=== PATIENT | male | born 1975 | race American Indian/Alaskan Native ===

== ENCOUNTER 2021-09-04 00:32 | Inpatient (IN) | payer SELFPAY ==
[2021-09-04] MEDS ORDERED: SODIUM CHLORIDE 0.9% 1000 ML IV SOLN IV ONE (08:10)
[2021-09-04] MEDS ORDERED: HYDROmorphone 1 MG/1 ML INJ IV STA (08:10)
[2021-09-04] MEDS ORDERED: PIPERACIL/TAZOBACTA 4.5/NS 100 4.5 GM/100 ML VIAL IV ONE (08:10)
[2021-09-04] MEDS ORDERED: ACETAMINOPHEN 500 MG TAB PO ONE (08:12)
[2021-09-04] MEDS ORDERED: TETANUS,DIPH,PERTUSS(ACELL) VACCINE 0.5 ML SYRINGE IM ONE (08:12)
--- NOTE | 2021-09-04 08:14 | Emergency Department Report ---
ED Lower Extremity HPI - General Chief Complaint: Extremity Injury, Lower Stated Complaint: FOOT PAIN Source: patient, RN notes reviewed Mode of arrival: Ambulatory Limitations: Physical Limitation - History of Present Illness Initial Comments: The patient is a 46-year-old gentleman who presents to the ER with a complaint of left foot pain, swelling, fevers and chills. He thinks that he fell and injured his foot a few days ago. He thinks he is not a diabetic but is not cert ain. He denies additional injuries and complaints. MD Complaint: leg injury, foot injury -: Gradual, days(s) Injury: Leg: Left, Foot: Left Type of Injury: blunt Severity: severe Improves With: rest Worsens With: movement, palpation - Related Data Allergies Allergy/AdvReac Type Severity Reaction Status Date / Time No Known Allergies Allergy Unverified 09/04/21 00:43 ED Review of Systems ROS: Stated complaint: FOOT PAIN Other details as noted in HPI Constitutional: fever, malaise, weakness Eyes: denies: eye discharge ENT: denies: epistaxis Respiratory: denies: cough Cardiovascular: denies: chest pain Gastrointestinal: denies: abdominal pain, nausea, vomiting, hematochezia Musculoskeletal: joint swelling, arthralgia, myalgia Skin: rash, lesions, change in color Neurological: weakness Psychiatric: anxiety ED Physical Exam - General Limitations: Physical Limitation General appearance: alert, anxious, in distress - Head Head exam: Present: atraumatic, normocephalic - Eye Eye exam: Present: normal appearance, EOMI. Absent: nystagmus - ENT ENT exam: Present: normal exam, normal orophraynx, mucous membranes moist, normal external ear exam - Neck Neck exam: Present: normal inspection, full ROM. Absent: tenderness, meningismus - Respiratory Respiratory exam: Present: normal lung sounds bilaterally. Absent: respiratory distress, wheezes, rales, rhonchi, stridor, decreased breath sounds - Cardiovascular Cardiovascular Exam: Present: normal rhythm, tachycardia, normal heart sounds. Absent: bradycardia, irregular rhythm, systolic murmur, diastolic murmur, rubs, gallop - GI/Abdominal GI/Abdominal exam: Present: soft. Absent: distended, tenderness, guarding, rebound, rigid, pulsatile mass - Rectal Rectal exam: Present: deferred - Extremities Exam Extremities exam: Present: full ROM, tenderness (There is left dorsal foot te nderness, redness and swelling. The muscular compartments are soft), other (2+ pulses noted in the bilateral upper and lower extremities. There is no long bony tenderness. The muscular compartments are soft. The pelvis is stable). Absent: normal inspection (There is diffuse left foot swelling, induration, erythema, and there is a dorsal foot abscess that is draining. There is cellulitis on the dorsal aspect of the foot, and circumferential cellulitis around the distal left lower extremity) - Back Exam Back exam: Present: normal inspection. Absent: tenderness, CVA tenderness (R), CVA tenderness (L), paraspinal tenderness, vertebral tenderness - Neurological Exam Neurological exam: Present: alert, oriented X3, other (No facial droop. Tongue midline. Extraocular movements intact bilaterally. Facial sensation intact to light touch in V1, V2, V3 distribution bilaterally. 5 and a 5 strength in 4 extremities. Sensation intact to light touch in 4 extremities.). Absent: motor sensory deficit - Psychiatric Psychiatric exam: Present: anxious - Skin Skin exam: Present: warm, erythema ED Course Vital Signs 09/04/21 09/04/21 09/04/21 00:44 00:46 09:37 Temperature 102.1 F H 102.1 F H Pulse Rate 114 H 83 Respiratory 20 Rate Blood Pressure 137/95 Blood Pressure 123/78 [Left] O2 Sat by Pulse 99 98 Oximetry 09/04/21 09:59 Temperature 100.6 F H Pulse Rate Respiratory Rate Blood Pressure Blood Pressure [Left] O2 Sat by Pulse Oximetry - Reevaluation(s) Reevaluation #1: 09/04/21 10:16 Differential diagnosis, including but not limited to: Cellulitis, abscess, sepsis Myositis,, rhabdomyolysis Assessment and plan: 46-year-old gentleman with obvious evidence of left lower extremity cellulitis, and abscess, muscular compartments are soft, appropriate pulses, ruling in for sepsis criteria, manifest by fever and tachycardia. Code sepsis is called overhead. Recommend admission to the medical service for fluids and antibiotics. Contacted general surgery on-call, Dr. Linnette Short, And hospital physician, Dr. Chelsea Gould Discussed the patient's history and physical and clinical impression. Hospital physician to admit patient to the medical service, general surgery to follow in consultation, request n.p.o. at this time x-rays reviewed and appreciated. Defer to inpatient team to follow these up. CK unremarkable, muscular compartments soft, myositis compartment syndrome are unlikely at this time. Discussed this plan of care with the patient. He is agreeable to the plan of care. Start fluids, antibiotics, pain medications. Feeling improved after initial ER therapy 09/04/21 10:16 ED Lower Extremity MDM - Lab Data Result diagrams: 09/04/21 08:30 09/04/21 08:30 Vital Signs 09/04/21 09/04/21 00:44 00:46 Temperature 102.1 F H 102.1 F H Pulse Rate 114 H Respiratory 20 Rate Blood Pressure 137/95 O2 Sat by Pulse 99 Oximetry Lab Results 09/04/21 09/04/21 09/04/21 Range/Units 08:30 08:30 08:30 WBC 11.4 H (4.5-11.0) K/mm3 RBC 4.04 (3.65-5.03) M/mm3 Hgb 11.3 L (11.8-15.2) gm/dl Hct 33.6 L (35.5-45.6) % MCV 83 L (84-94) fl MCH 28 (28-32) pg MCHC 34 (32-34) % RDW 14.6 (13.2-15.2) % Plt Count 330 (140-440) K/mm3 Lymph % (Auto) 10.7 L (13.4-35.0) % [place] % (Auto) 10.2 H (0.0-7.3) % Eos % (Auto) 0.2 (0.0-4.3) % Baso % (Auto) 0.4 (0.0-1.8) % Lymph # (Auto) 1.2 (1.2-5.4) K/mm3 [place] # (Auto) 1.2 H (0.0-0.8) K/mm3 Eos # (Auto) 0.0 (0.0-0.4) K/mm3 Baso # (Auto) 0.0 (0.0-0.1) K/mm3 Seg Neutrophils % 78.5 H (40.0-70.0) % Seg Neutrophils # 8.9 H (1.8-7.7) K/mm3 ESR 113 (0-20) mm/Hr PT 14.6 (12.2-14.9) Sec. INR 1.03 (0.87-1.13) APTT 29.2 (24.2-36.6) Sec. Sodium 134 L (137-145) mmol/L Potassium 4.1 (3.6-5.0) mmol/L Chloride 99.7 (98-107) mmol/L Carbon Dioxide 18 L (22-30) mmol/L Anion Gap 20 mmol/L BUN 17 (9-20) mg/dL Creatinine 1.2 (0.8-1.3) mg/dL Estimated GFR > 60 ml/min BUN/Creatinine Ratio 14 % Glucose 133 H (75-100) mg/dL Hemoglobin A1c (4-6) % Lactic Acid (0.7-2.0) mmol/L Calcium 8.3 L (8.4-10.2) mg/dL AST 24 (5-40) units/L ALT 18 (7-56) units/L Alkaline Phosphatase 151 H (35-129) units/L Total Creatine Kinase (55-170) units/L Total Protein 6.7 (6.3-8.2) g/dL Albumin 3.6 L (3.9-5) g/dL Albumin/Globulin Ratio 1.2 % Blood Type 09/04/21 09/04/21 09/04/21 Range/Units 08:30 08:30 08:30 WBC (4.5-11.0) K/mm3 RBC (3.65-5.03) M/mm3 Hgb (11.8-15.2) gm/dl Hct (35.5-45.6) % MCV (84-94) fl MCH (28-32) pg MCHC (32-34) % RDW (13.2-15.2) % Plt Count (140-440) K/mm3 Lymph % (Auto) (13.4-35.0) % [place] % (Auto) (0.0-7.3) % Eos % (Auto) (0.0-4.3) % Baso % (Auto) (0.0-1.8) % Lymph # (Auto) (1.2-5.4) K/mm3 [place] # (Auto) (0.0-0.8) K/mm3 Eos # (Auto) (0.0-0.4) K/mm3 Baso # (Auto) (0.0-0.1) K/mm3 Seg Neutrophils % (40.0-70.0) % Seg Neutrophils # (1.8-7.7) K/mm3 ESR (0-20) mm/Hr PT (12.2-14.9) Sec. INR (0.87-1.13) APTT (24.2-36.6) Sec. Sodium (137-145) mmol/L Potassium (3.6-5.0) mmol/L Chloride (98-107) mmol/L Carbon Dioxide (22-30) mmol/L Anion Gap mmol/L BUN (9-20) mg/dL Creatinine (0.8-1.3) mg/dL Estimated GFR ml/min BUN/Creatinine Ratio % Glucose (75-100) mg/dL Hemoglobin A1c 5.5 (4-6) % Lactic Acid 1.10 (0.7-2.0) mmol/L Calcium (8.4-10.2) mg/dL AST (5-40) units/L ALT (7-56) units/L Alkaline Phosphatase (35-129) units/L Total Creatine Kinase 61 (55-170) units/L Total Protein (6.3-8.2) g/dL Albumin (3.9-5) g/dL Albumin/Globulin Ratio % Blood Type 09/04/21 09/04/21 Range/Units 09:20 09:29 WBC (4.5-11.0) K/mm3 RBC (3.65-5.03) M/mm3 Hgb (11.8-15.2) gm/dl Hct (35.5-45.6) % MCV (84-94) fl MCH (28-32) pg MCHC (32-34) % RDW (13.2-15.2) % Plt Count (140-440) K/mm3 Lymph % (Auto) (13.4-35.0) % [place] % (Auto) (0.0-7.3) % Eos % (Auto) (0.0-4.3) % Baso % (Auto) (0.0-1.8) % Lymph # (Auto) (1.2-5.4) K/mm3 [place] # (Auto) (0.0-0.8) K/mm3 Eos # (Auto) (0.0-0.4) K/mm3 Baso # (Auto) (0.0-0.1) K/mm3 Seg Neutrophils % (40.0-70.0) % Seg Neutrophils # (1.8-7.7) K/mm3 ESR (0-20) mm/Hr PT (12.2-14.9) Sec. INR (0.87-1.13) APTT (24.2-36.6) Sec. Sodium (137-145) mmol/L Potassium (3.6-5.0) mmol/L Chloride (98-107) mmol/L Carbon Dioxide (22-30) mmol/L Anion Gap mmol/L BUN (9-20) mg/dL Creatinine (0.8-1.3) mg/dL Estimated GFR ml/min BUN/Creatinine Ratio % Glucose (75-100) mg/dL Hemoglobin A1c (4-6) % Lactic Acid 1.20 (0.7-2.0) mmol/L Calcium (8.4-10.2) mg/dL AST (5-40) units/L ALT (7-56) units/L Alkaline Phosphatase (35-129) units/L Total Creatine Kinase (55-170) units/L Total Protein (6.3-8.2) g/dL Albumin (3.9-5) g/dL Albumin/Globulin Ratio % Blood Type O POSITIVE - Radiology Data Radiology results: pending, report reviewed, image reviewed Left foot 3 views INDICATION: Foot pain FINDINGS: MTP joints and IP joints appear normal. Calcaneal spurring is seen. Diffuse soft tissue swelling is seen throughout the foot IMPRESSION: Diffuse soft tissue swelling throughout the foot. Calcaneal spurring. Signer Name: Kun Moreira MD Signed: 09/04/2021 8:20 AM Workstation Name: [id number] Left leg-4 views INDICATION: Left leg pain and swelling. COMPARISON: None available. IMPRESSION: There is a tiny L shaped metallic foreign body in the anterolateral aspect of the proximal calf. There is mild circumferential swelling about the essentially the entire catheter extending to the ankle but most prominently in the calf. Normal alignment. Mild tricompartmental DJD in the knee and in the medial ankle mortise. No acute fracture. Moderate enthesopathic change at the calcaneal tuberosity. Signer Name: Philip Iqbal MD Signed: 09/04/2021 8:27 AM Workstation Name: [email or web address] Critical Care Time: Yes Critical care time in (mins) excluding proc time.: 35 Critical care attestation.: If time is entered above; I have spent that time in minutes in the direct care of this critically ill patient, excluding procedure time. ED Disposition Clinical Impression: Sepsis, Foot abscess, left, Left leg cellulitis Disposition: ADMITTED INPATIENT Is pt being admited?: Yes Does the pt Need Aspirin: No Condition: Fair
[2021-09-04 08:43] LABS: Basophils % (Auto) 0.4 % (0.0-1.8); Eosinophils % (Auto) 0.2 % (0.0-4.3); Hematocrit 33.6 % (35.5-45.6); Hemoglobin 11.3 gm/dl (11.8-15.2); Lymphocytes # (Auto) 1.2 K/mm3 (1.2-5.4); Lymphocytes % (Auto) 10.7 % (13.4-35.0); Mean Corpuscular HGB Conc 34 % (32-34); Mean Corpuscular Volume 83 fl (84-94); Monocytes # (Auto) 1.2 K/mm3 (0.0-0.8); Monocytes % (Auto) 10.2 % (0.0-7.3); Platelet Count 330 K/mm3 (140-440); Red Blood Count 4.04 M/mm3 (3.65-5.03); Red Cell Distribution Width 14.6 % (13.2-15.2)
[2021-09-04 08:54] LABS: INR 1.03 (0.87-1.13)
[2021-09-04 08:57] LABS: Alanine Aminotransferase 18 units/L (7-56); Albumin 3.6 g/dL (3.9-5); BUN/Creatinine Ratio 14; Blood Urea Nitrogen 17 mg/dL (9-20); Calcium 8.3 mg/dL (8.4-10.2); Hemolysis Index 2
[2021-09-04] MEDS ORDERED: VANCOMYCIN 1,750 MG in SODIUM CHLORIDE 0.9% 500 ML 500 ML IV ONE (09:00)
[2021-09-04] MEDS ORDERED: DEXTROSE 50% IN WATER (25GM) 50 ML SYRINGE IV PRN (09:00)
[2021-09-04] MEDS ORDERED: NALOXONE 0.4 MG/1 ML INJ IV PRN (09:00)
[2021-09-04] MEDS ORDERED: VANCOMYCIN PHARMACY TO DOSE IV SCH (09:00)
--- NOTE | 2021-09-04 09:05 | History and Physical Report ---
History of Present Illness Date of examination: 09/04/21 Date of admission: 09/04/21 Chief complaint: Left lower extremity abscess History of present illness: Patient is a 46-year-old male currently homeless according to him unfortunately uses IV drugs and also marijuana presents to the ER today with complaint of left foot pain swelling fevers and chills in the ER was noted to have a temperature of 102.1. He was appropriately diagnosed for severe sepsis secondary to left lower extremity cellulitis. He believes that he fell and may have injured his foot a few days ago he also thinks that he was bitten by something. Here he denies injecting any substance to his leg his choice of drugs heroin which he says he has not had in a few months. He denies any nausea vomiting or diarrhea. He denies any history of diabetes. He does appear severely disheveled and unkept. Past History Past Medical History: other (Homeless, IV drug use) Past Surgical History: No surgical history Social history: smoking, IV drug use, full code. denies: alcohol abuse, prescription drug abuse Family history: no significant family history Medications and Allergies Allergies Allergy/AdvReac Type Severity Reaction Status Date / Time No Known Allergies Allergy Unverified 09/04/21 00:43 Active Meds: Active Medications Acetaminophen (Acetaminophen 325 Mg Tab) 650 mg PO Q4H PRN PRN Reason: Pain MILD(1-3)/Fever >100.5/WELLS Albuterol (Albuterol 2.5 Mg/3 Ml Nebu) 2.5 mg IH Q4HRT PRN PRN Reason: Shortness Of Breath Dextrose (Dextrose 50% In Water (25gm) 50 Ml Syringe) 50 ml IV Q30MIN PRN; Protocol PRN Reason: Hypoglycemia Docusate Sodium (Docusate Sodium 100 Mg Cap) 100 mg PO BID LIANNA Famotidine (Famotidine 20 Mg/2 Ml Inj) 20 mg IV BID LIANNA Heparin Sodium (Porcine) (Heparin 5,000 Unit/1 Ml Vial) 5,000 unit SUB-Q Q8HR LIANNA Hydromorphone HCl (Hydromorphone 1 Mg/1 Ml Inj) 0.25 mg IV Q4H PRN PRN Reason: Pain, Moderate (4-6) Vancomycin HCl 1,750 mg/ (Sodium Chloride) 535 mls @ 333 mls/hr IV ONCE ONE; Protocol Stop: 09/04/21 10:36 Sodium Chloride (Nacl 0.9% 1000 Ml) 1,000 mls @ 125 mls/hr IV DIRECT LIANNA Naloxone HCl (Naloxone 0.4 Mg/1 Ml Inj) 0.1 mg IV Q2MIN PRN PRN Reason: Res Rate </= 8 or 02 SAT < 92% Ondansetron HCl (Ondansetron 4 Mg/2 Ml Inj) 4 mg IV Q6H PRN PRN Reason: Nausea And Vomiting Sodium Chloride (Sodium Chloride 0.9% 10 Ml Flush Syringe) 10 ml IV BID LIANNA Sodium Chloride (Sodium Chloride 0.9% 10 Ml Flush Syringe) 10 ml IV PRN PRN PRN Reason: LINE FLUSH Review of Systems All systems: negative Constitutional: fever, chills, no weight loss, no weight gain, no sweats, no night sweats, no fatigue, no weakness, no malaise, no lethargy Cardiovascular: no chest pain, no orthopnea, no palpitations, no rapid/irregular heart beat, no edema, no syncope, no lightheadedness, no shortness of breath Respiratory: no cough, no cough with sputum, no excessive sputum, no hemoptysis, no shortness of breath, no dyspnea on exertion Gastrointestinal: no vomiting, no diarrhea, no constipation, no change in bowel habits Genitourinary Male: no dysuria, no discharge, no urinary hesitancy, no incontinence Musculoskeletal: other (Left foot swelling redness) Integumentary: redness, wounds Exam - Physical Exam Narrative exam: VITAL SIGNS: Reviewed. GENERAL: The patient appears normally developed otherwise disheveled and unkept, Vital signs as documented. HEAD: No signs of head trauma. EYES: Pupils are equal. Extraocular motions intact. EARS: Hearing grossly intact. MOUTH: Oropharynx is normal. NECK: No adenopathy, no JVD. CHEST: Chest with clear breath sounds bilaterally. No wheezes, rales, or rhonchi. CARDIAC: Regular rate and rhythm. S1 and S2, without murmurs, gallops, or rubs. VASCULAR: No Edema. Peripheral pulses normal and equal in all extremities. ABDOMEN: Soft, non tender and non distended. No rebound or guarding, and no masses palpated. Bowel Sounds normal. MUSCULOSKELETAL: Good range of motion of all major joints. Except right foot with significant edema redness punctate lesion and induration. Warmth extending all the way to ankle. Otherwise no cyanosis. Has a track yash of the left upper extremity NEUROLOGIC EXAM: Alert and oriented x 3 No focal sensory or strength deficits. Speech normal. Follows commands. PSYCHIATRIC: Mood normal. SKIN: detail exam as documented in skin assessment - Constitutional Vitals: Temp Pulse Resp BP Pulse Ox 102.1 F H 114 H 20 137/95 99 09/04/21 00:46 09/04/21 00:46 09/04/21 00:46 09/04/21 00:46 09/04/21 00:46 Results - Labs CBC & Chem 7: 09/04/21 08:30 09/04/21 08:30 Labs: Laboratory Last Values WBC 11.4 K/mm3 (4.5-11.0) H 09/04/21 08:30 RBC 4.04 M/mm3 (3.65-5.03) 09/04/21 08:30 Hgb 11.3 gm/dl (11.8-15.2) L 09/04/21 08:30 Hct 33.6 % (35.5-45.6) L 09/04/21 08:30 MCV 83 fl (84-94) L 09/04/21 08:30 MCH 28 pg (28-32) 09/04/21 08:30 MCHC 34 % (32-34) 09/04/21 08:30 RDW 14.6 % (13.2-15.2) 09/04/21 08:30 Plt Count 330 K/mm3 (140-440) 09/04/21 08:30 Lymph % (Auto) 10.7 % (13.4-35.0) L 09/04/21 08:30 [place] % (Auto) 10.2 % (0.0-7.3) H 09/04/21 08:30 Eos % (Auto) 0.2 % (0.0-4.3) 09/04/21 08:30 Baso % (Auto) 0.4 % (0.0-1.8) 09/04/21 08:30 Lymph # (Auto) 1.2 K/mm3 (1.2-5.4) 09/04/21 08:30 [place] # (Auto) 1.2 K/mm3 (0.0-0.8) H 09/04/21 08:30 Eos # (Auto) 0.0 K/mm3 (0.0-0.4) 09/04/21 08:30 Baso # (Auto) 0.0 K/mm3 (0.0-0.1) 09/04/21 08:30 Seg Neutrophils % 78.5 % (40.0-70.0) H 09/04/21 08:30 Seg Neutrophils # 8.9 K/mm3 (1.8-7.7) H 09/04/21 08:30 PT 14.6 Sec. (12.2-14.9) 09/04/21 08:30 INR 1.03 (0.87-1.13) 09/04/21 08:30 Sodium 134 mmol/L (137-145) L 09/04/21 08:30 Potassium 4.1 mmol/L (3.6-5.0) 09/04/21 08:30 Chloride 99.7 mmol/L (98-107) 09/04/21 08:30 Carbon Dioxide 18 mmol/L (22-30) L 09/04/21 08:30 Anion Gap 20 mmol/L 09/04/21 08:30 BUN 17 mg/dL (9-20) 09/04/21 08:30 Creatinine 1.2 mg/dL (0.8-1.3) 09/04/21 08:30 Estimated GFR > 60 ml/min 09/04/21 08:30 BUN/Creatinine Ratio 14 % 09/04/21 08:30 Glucose 133 mg/dL (75-100) H 09/04/21 08:30 Lactic Acid 1.10 mmol/L (0.7-2.0) 09/04/21 08:30 Calcium 8.3 mg/dL (8.4-10.2) L 09/04/21 08:30 AST 24 units/L (5-40) 09/04/21 08:30 ALT 18 units/L (7-56) 09/04/21 08:30 Alkaline Phosphatase 151 units/L (35-129) H 09/04/21 08:30 Total Creatine Kinase 61 units/L (55-170) 09/04/21 08:30 Total Protein 6.7 g/dL (6.3-8.2) 09/04/21 08:30 Albumin 3.6 g/dL (3.9-5) L 09/04/21 08:30 Albumin/Globulin Ratio 1.2 % 09/04/21 08:30 Assessment and Plan Assessment and plan: Patient is a 46-year-old male currently homeless according to him unfortunately uses IV drugs and also marijuana presents to the ER today with complaint of left foot pain swelling fevers and chills in the ER was noted to have a temperature of 102.1. He was appropriately diagnosed for severe sepsis secondary to left lower extremity cellulitis. He believes that he fell and may have injured his foot a few days ago he also thinks that he was bitten by something. Here he denies injecting any substance to his leg his choice of drugs heroin which he s ays he has not had in a few months. He denies any nausea vomiting or diarrhea. He denies any history of diabetes. He does appear severely disheveled and unkept. Left foot 3 views IMPRESSION: Diffuse soft tissue swelling throughout the foot. Calcaneal spurring. S Left leg-4 views IIMPRESSION: There is a tiny L shaped metallic foreign body in the anterolateral aspect of the proximal calf. There is mild circumferential swelling about the essentially the entire catheter extending to the ankle but most prominently in the calf. Normal alignment. Mild tricompartmental DJD in the knee and in the medial ankle mortise. No acute fracture. Moderate enthesopathic change at the calcaneal tuberosity. Severe sepsis, Foot abscess, left, Left leg cellulitis Possible retained foreign body on the left foot IV drug abuse Tobacco use disorder Homeless Metabolic acidosis PLAN Admit to Med[facility] unit Sepsis protocol, fluids, cultures, abx ID and Surgical consult Counselling on lifestyle chocies, substance abuse and tobacco use disorder 25mins Counseling on footwear is on ambulation Social work consult Monitor for withdrawal symptoms DVT and GI prophylax Advance Directives: Yes Plan of care discussed with patient/family: Yes
[2021-09-04 09:11] LABS: Erythrocyte Sedimentation Rate 113 mm/Hr (0-20)
[2021-09-04 09:20] LABS: Partial Thromboplastin Time 29.2 Sec. (24.2-36.6)
--- NOTE | 2021-09-04 09:25 | XRay Report ---
Left foot 3 views INDICATION: Foot pain FINDINGS: MTP joints and IP joints appear normal. Calcaneal spurring is seen. Diffuse soft tissue swe lling is seen throughout the foot IMPRESSION: Diffuse soft tissue swelling throughout the foot. Calcaneal spurring. Signer Name: Kun Moreira MD Signed: 09/04/2021 9:20 AM Workstation Name: [id number]
--- NOTE | 2021-09-04 09:31 | XRay Report ---
Left leg-4 views INDICATION: Left leg pain and swelling. COMPARISON: None available. IMPRESSION: There is a tiny L shaped metallic foreign body in the anterolateral aspect of the proxim al calf. There is mild circumferential swelling about the essentially the entire catheter extending t o the ankle but most prominently in the calf. Normal alignment. Mild tricompartmental DJD in the kne e and in the medial ankle mortise. No acute fracture. Moderate enthesopathic change at the calcaneal tuberosity. Signer Name: Philip Iqbal MD Signed: 09/04/2021 9:27 AM Workstation Name: [id number]
[2021-09-04] MEDS ORDERED: ONDANSETRON 4 MG/2 ML INJ IV PRN (10:00)
[2021-09-04] MEDS: DOCUSATE SODIUM 100 MG CAP PO SCH ×2 (11:57→22:58)
[2021-09-04] MEDS: FAMOTIDINE 20 MG/2 ML INJ IV SCH ×2 (11:57→22:57)
[2021-09-04] MEDS ORDERED: ALBUTEROL 2.5 MG/3 ML NEBU IH PRN (12:00)
--- NOTE | 2021-09-04 13:20 | Consultation ---
History of Present Illness Consult date: 09/04/21 Reason for consult: other (Left foot pain) Chief complaint: Left foot pain and swelling - History of present illness History of present illness: 46-year-old male with no past medical history who presented to the emergency room with a few days of worsening redness, swelling, pain in his left foot. The patient states that he tripped over something and bumped his left foot. He thought he may have broken his foot or ankle. 1 to 2 days after this incident he noticed swelling and redness of his leg. He has never had anything like this for. He states he noted drainage from the area but cannot characterize the fluid. States that the top of the foot is painful. T-max of 102 in the emergency room. Work-up in the emergency room revealed that the patient had erythema and possible underlying abscess of the right foot. He is admitted to the hospital service for treatment of sepsis and surgery is consulted for evaluation. Past History Past Medical History: other (Homeless, IV drug use) Past Surgical History: No surgical history Social history: smoking, IV drug use, full code. denies: alcohol abuse, pre scription drug abuse Family history: no significant family history Medications and Allergies Allergies Allergy/AdvReac Type Severity Reaction Status Date / Time No Known Allergies Allergy Unverified 09/04/21 00:43 Active Meds: Active Medications Acetaminophen (Acetaminophen 325 Mg Tab) 650 mg PO Q4H PRN PRN Reason: Pain MILD(1-3)/Fever >100.5/WELLS Albuterol (Albuterol 2.5 Mg/3 Ml Nebu) 2.5 mg IH Q4HRT PRN PRN Reason: Shortness Of Breath Dextrose (Dextrose 50% In Water (25gm) 50 Ml Syringe) 50 ml IV Q30MIN PRN; Protocol PRN Reason: Hypoglycemia Docusate Sodium (Docusate Sodium 100 Mg Cap) 100 mg PO BID [facility] Last Admin: 09/04/21 11:57 Dose: Not Given Famotidine (Famotidine 20 Mg/2 Ml Inj) 20 mg IV BID [facility] Last Admin: 09/04/21 11:57 Dose: Not Given Heparin Sodium (Porcine) (Heparin 5,000 Unit/1 Ml Vial) 5,000 unit SUB-Q Q8HR [facility] Hydromorphone HCl (Hydromorphone 1 Mg/1 Ml Inj) 0.25 mg IV Q4H PRN PRN Reason: Pain, Moderate (4-6) Sodium Chloride (Nacl 0.9% 1000 Ml) 1,000 mls @ 125 mls/hr IV DIRECT [facility] Vancomycin HCl 1,250 mg/ (Sodium Chloride) 275 mls @ 166.667 mls/hr IV Q12HR [facility] Naloxone HCl (Naloxone 0.4 Mg/1 Ml Inj) 0.1 mg IV Q2MIN PRN PRN Reason: Res Rate </= 8 or 02 SAT < 92% Ondansetron HCl (Ondansetron 4 Mg/2 Ml Inj) 4 mg IV Q6H PRN PRN Reason: Nausea And Vomiting Sodium Chloride (Sodium Chloride 0.9% 10 Ml Flush Syringe) 10 ml IV BID [facility] Last Admin: 09/04/21 11:58 Dose: 10 ml Sodium Chloride (Sodium Chloride 0.9% 10 Ml Flush Syringe) 10 ml IV PRN PRN PRN Reason: LINE FLUSH Review of Systems All systems: negative (10 point ROS performed and negative except that listed in HPI) Exam Vital Signs Temp 102.1 F H 09/04/21 00:44 Narrative exam: Gen.: Awake, alert, oriented x3. No apparent distress ENT: Trachea midline. No lymphadenopathy. No scleral icterus or conjunctival pallor CV: S1, S2 present Respiratory: No audible wheezes Abdomen: Soft, nondistended, nontender. No rebound, rigidity, guarding Extremities: 3+ edema of left foot extending to the lower calf. There is erythema of the dorsal aspect of the foot extending towards the ankle with. The foot is warm. Calf is soft. Moderate tenderness to palpation of the foot. Superficial and wound. Dorsal aspect of the foot without drainage. Left foot examined with bedside ultrasound. Severe edema seen of the skin and subcutaneous tissue without definitive collection. Visible dorsalis pedis with pulsation. Results - Labs 09/04/21 08:30 09/04/21 08:30 Abnormal lab results 09/04/21 09/04/21 09/04/21 Range/Units 08:30 08:30 08:30 WBC 11.4 H (4.5-11.0) K/mm3 Hgb 11.3 L (11.8-15.2) gm/dl Hct 33.6 L (35.5-45.6) % MCV 83 L (84-94) fl Lymph % (Auto) 10.7 L (13.4-35.0) % [place] % (Auto) 10.2 H (0.0-7.3) % [place] # (Auto) 1.2 H (0.0-0.8) K/mm3 Seg Neutrophils % 78.5 H (40.0-70.0) % Seg Neutrophils # 8.9 H (1.8-7.7) K/mm3 Sodium 134 L (137-145) mmol/L Carbon Dioxide 18 L (22-30) mmol/L Glucose 133 H (75-100) mg/dL Calcium 8.3 L (8.4-10.2) mg/dL Alkaline Phosphatase 151 H (35-129) units/L C-Reactive Protein 14.90 H (0.00-1.30) mg/dL Albumin 3.6 L (3.9-5) g/dL Diabetes panel 09/04/21 09/04/21 Range/Units 08:30 08:30 Sodium 134 L (137-145) mmol/L Potassium 4.1 (3.6-5.0) mmol/L Chloride 99.7 (98-107) mmol/L Carbon Dioxide 18 L (22-30) mmol/L BUN 17 (9-20) mg/dL Creatinine 1.2 (0.8-1.3) mg/dL Glucose 133 H (75-100) mg/dL Hemoglobin A1c 5.5 (4-6) % Calcium 8.3 L (8.4-10.2) mg/dL AST 24 (5-40) units/L ALT 18 (7-56) units/L Alkaline Phosphatase 151 H (35-129) units/L Total Protein 6.7 (6.3-8.2) g/dL Albumin 3.6 L (3.9-5) g/dL Calcium panel 09/04/21 Range/Units 08:30 Calcium 8.3 L (8.4-10.2) mg/dL Albumin 3.6 L (3.9-5) g/dL Pituitary panel 09/04/21 Range/Units 08:30 Sodium 134 L (137-145) mmol/L Potassium 4.1 (3.6-5.0) mmol/L Chloride 99.7 (98-107) mmol/L Carbon Dioxide 18 L (22-30) mmol/L BUN 17 (9-20) mg/dL Creatinine 1.2 (0.8-1.3) mg/dL Glucose 133 H (75-100) mg/dL Calcium 8.3 L (8.4-10.2) mg/dL Adrenal panel 09/04/21 Range/Units 08:30 Sodium 134 L (137-145) mmol/L Potassium 4.1 (3.6-5.0) mmol/L Chloride 99.7 (98-107) mmol/L Carbon Dioxide 18 L (22-30) mmol/L BUN 17 (9-20) mg/dL Creatinine 1.2 (0.8-1.3) mg/dL Glucose 133 H (75-100) mg/dL Calcium 8.3 L (8.4-10.2) mg/dL Total Bilirubin 0.50 (0.1-1.2) mg/dL AST 24 (5-40) units/L ALT 18 (7-56) units/L Alkaline Phosphatase 151 H (35-129) units/L Total Protein 6.7 (6.3-8.2) g/dL Albumin 3.6 L (3.9-5) g/dL - Imaging Additional studies: X-ray of left foot and ankle Assessment and Plan 46 yo M with 1. L foot cellulitis 2. sepsis Bedside ultrasound performed and no obvious drainable collection was seen. Plan: 1. Diet as [place] 2. IVF 3. IV abx 4. blcx pending 5. DVT ppx 6. prn pain control 7. Ct LLE to r/o abscess 8. May need I&D if abscess on imaging or no clinical improvement Thank you for this consultation. Please call with any questions or concerns. Evaluation and treatment of this patient was during the time of the national and state emergency arising from COVID19 coronavirus pandemic. Treatment and procedures performed meet the current and available best practice and guidelines for patient during the COVID pandemic.
[2021-09-04] MEDS: HYDROmorphone 1 MG/1 ML INJ IV PRN ×2 (14:39→21:23)
[2021-09-04] MEDS: HEPARIN 5,000 UNIT/1 ML VIAL SUB-Q SCH ×2 (14:39→22:57)
--- NOTE | 2021-09-04 14:46 | Cat Scan Report ---
CT LEFT LOWER EXTREMITY WITH CONTRAST INDICATION : L foot wound/cellulitis, r/o abscess OMNI 300 100 ML. TECHNIQUE: Axial imaging performed through the left lower leg from the knee through the foot followi ng 100 cc of Omnipaque 300 intravenously. Sagittal and coronal reformatted images. All CT scans at th is location are performed using CT dose reduction for ALARA by means of automated exposure control. COMPARISON: Left tibia and fibula x-ray performed the same day FINDINGS: There is moderate to severe diffuse subcutaneous edema throughout the distal left lower ext remity. There appears to be focal skin ulceration on the dorsum of the foot. No soft tissue gas is id entified. No peripherally enhancing fluid collection consistent with abscess is identified. Previousl y described tiny shaped metallic foreign body is noted in the lateral soft tissues just below the ski n surface in the mid harris area. There are no obvious inflammatory changes surrounding this metallic d ensity. There is an ill-defined low density lesion within the muscular structures between the proximal tibia and fibula measuring 2.4 x 1.7 x 3.7 cm cyst. Internal density measures 4 Hounsfield units. This does not appear to represent an abscess. I suspect this represents a ganglion cyst. The remaining muscula r structures are unremarkable. The vascular structures are widely patent. No bony abnormalities suggest osteomyelitis. IMPRESSION: Diffuse nonspecific soft tissue edema consistent with cellulitis. No abscess is appreciat ed. Probable ganglion cyst as described. Signer Name: Griffin Hopkins Jr, MD Signed: 09/04/2021 2:42 PM Workstation Name: [id number]
[2021-09-04 16:22] LABS: Bilirubin,Urine NEG (Negative); Blood,Urine SM (Negative); Color,Urine Yellow (Yellow); Mucus,Urine FEW /HPF
[2021-09-04 16:25] LABS: Benzodiazepines Screen,Urine Negative; Methadone Screen,Urine Negative; Opiate Screen,Urine Negative
[2021-09-04 16:38] LABS: Amphetamine Screen,Urine Positive; Cannabinoid Screen,Urine Positive; Cocaine Screen,Urine Positive
[2021-09-04] MEDS: VANCOMYCIN 1,250 MG in SODIUM CHLORIDE 0.9% 250ML 250 ML IV SCH (22:56)
[2021-09-04] MEDS: SODIUM CHLORIDE 0.9% 1000 ML 1,000 ML IV SCH (23:02)
[2021-09-05] MEDS: HYDROmorphone 1 MG/1 ML INJ IV PRN ×5 (02:35→23:09)
[2021-09-05] MEDS: HEPARIN 5,000 UNIT/1 ML VIAL SUB-Q SCH ×3 (06:14→22:04)
[2021-09-05] MEDS: SODIUM CHLORIDE 0.9% 1000 ML 1,000 ML IV SCH (06:17)
[2021-09-05 06:22] LABS: Basophils # (Auto) 0.1 K/mm3 (0.0-0.1); Basophils % (Auto) 0.3 % (0.0-1.8); Lymphocytes # (Auto) 1.2 K/mm3 (1.2-5.4); Lymphocytes % (Auto) 8.5 % (13.4-35.0); Mean Corpuscular HGB Conc 34 % (32-34); Mean Corpuscular Volume 82 fl (84-94); Monocytes # (Auto) 1.4 K/mm3 (0.0-0.8); Monocytes % (Auto) 9.7 % (0.0-7.3); Platelet Count 269 K/mm3 (140-440); Red Blood Count 3.54 M/mm3 (3.65-5.03); Red Cell Distribution Width 14.5 % (13.2-15.2)
[2021-09-05 07:21] LABS: BUN/Creatinine Ratio 11; Blood Urea Nitrogen 11 mg/dL (9-20); Calcium 8.4 mg/dL (8.4-10.2); Hemolysis Index 0; Prealbumin 0.063 g/L (0.200-0.400)
[2021-09-05] MEDS ORDERED: POTASSIUM CHLORIDE ER 20 MEQ TAB PO NR (09:00)
[2021-09-05] MEDS: ACETAMINOPHEN 325 MG TAB PO PRN (10:16)
[2021-09-05] MEDS: DOCUSATE SODIUM 100 MG CAP PO SCH ×2 (10:17→22:04)
[2021-09-05] MEDS: FAMOTIDINE 20 MG/2 ML INJ IV SCH ×2 (10:17→22:04)
[2021-09-05] MEDS: VANCOMYCIN 1,250 MG in SODIUM CHLORIDE 0.9% 250ML 250 ML IV SCH ×2 (10:47→22:04)
--- NOTE | 2021-09-05 12:01 | Consultation ---
History of Present Illness - Reason for Consult Consult date: 09/05/21 L foot cellulitis and abscess Requesting physician: ROLANDO STODDARD - History of Present Illness The patient is a 46-year-old male with IVDU was admitted with left foot pain and swelling consistent with cellulitis, there was also concern for abscess for which he was seen by general surgery. Symptoms began about 2 days ago after trauma due to fall. CT revealed diffuse nonspecific soft tissue edema, no focal abscess seen. ID consulted for additional evaluation. Fever of 102.1 F on a dmission. Urinary tox screen positive for amphetamine, marijuana, cocaine. Works in construction. Denies sharing of needles. Review of Systems: Per HPI Past History Past Medical History: other (Homeless, IV drug use) Past Surgical History: No surgical history Social history: smoking, IV drug use, full code. denies: alcohol abuse, prescription drug abuse Family history: no significant family history Medications and Allergies Allergies Allergy/AdvReac Type Severity Reaction Status Date / Time No Known Allergies Allergy Unverified 09/04/21 00:43 Active Meds: Active Medications Acetaminophen (Acetaminophen 325 Mg Tab) 650 mg PO Q4H PRN PRN Reason: Pain MILD(1-3)/Fever >100.5/WELLS Last Admin: 09/05/21 10:16 Dose: 650 mg Albuterol (Albuterol 2.5 Mg/3 Ml Nebu) 2.5 mg IH Q4HRT PRN PRN Reason: Shortness Of Breath Dextrose (Dextrose 50% In Water (25gm) 50 Ml Syringe) 50 ml IV Q30MIN PRN; Protocol PRN Reason: Hypoglycemia Docusate Sodium (Docusate Sodium 100 Mg Cap) 100 mg PO BID [facility] Last Admin: 09/05/21 10:17 Dose: 100 mg Famotidine (Famotidine 20 Mg/2 Ml Inj) 20 mg IV BID [facility] Last Admin: 09/05/21 10:17 Dose: 20 mg Heparin Sodium (Porcine) (Heparin 5,000 Unit/1 Ml Vial) 5,000 unit SUB-Q Q8HR [facility] Last Admin: 09/05/21 06:14 Dose: 5,000 unit Hydromorphone HCl (Hydromorphone 1 Mg/1 Ml Inj) 0.25 mg IV Q4H PRN PRN Reason: Pain, Moderate (4-6) Last Admin: 09/05/21 10:16 Dose: 0.25 mg Sodium Chloride (Nacl 0.9% 1000 Ml) 1,000 mls @ 125 mls/hr IV DIRECT [facility] Last Admin: 09/05/21 06:17 Dose: 125 mls/hr Vancomycin HCl 1,250 mg/ (Sodium Chloride) 275 mls @ 166.667 mls/hr IV Q12HR [facility] Last Admin: 09/05/21 10:47 Dose: 166.667 mls/hr Naloxone HCl (Naloxone 0.4 Mg/1 Ml Inj) 0.1 mg IV Q2MIN PRN PRN Reason: Res Rate </= 8 or 02 SAT < 92% Ondansetron HCl (Ondansetron 4 Mg/2 Ml Inj) 4 mg IV Q6H PRN PRN Reason: Nausea And Vomiting Potassium Chloride (Potassium Chloride Er 20 Meq Tab) 40 meq PO ONCE@0900 NR Stop: 09/05/21 14:00 Last Admin: 09/05/21 10:24 Dose: 40 meq Sodium Chloride (Sodium Chloride 0.9% 10 Ml Flush Syringe) 10 ml IV BID [facility] Last Admin: 09/05/21 10:19 Dose: 10 ml Sodium Chloride (Sodium Chloride 0.9% 10 Ml Flush Syringe) 10 ml IV PRN PRN PRN Reason: LINE FLUSH Physical Examination - Physical Exam Narrative exam: Physical Exam: Constitutional: Alert, cooperative. No acute distress Head, Ears, Nose: Normocephalic, atraumatic. External ears, nose normal Eyes: Conjunctivae/corneas clear. No icterus. No ptosis. Neck: Supple, no meningeal signs Cardiovascular: S1, S2 + Respiratory: Good air entry, clear to auscultation bilaterally GI: Soft, non-tender; bowel sounds normal. No peritoneal signs Musculoskeletal: L foot swelling, redness, tenderness, L dorsum with edema, superficial eschar + Skin: No rash or abscess. Tattoos + Hem/Lymphatic: No palpable cervical or supraclavicular nodes. No lymphangitis Psych: Mood ok. Affect normal Neurological: Awake, alert, oriented. No gross abnormality - Constitutional Vitals: Vital Signs Temp Pulse Resp BP Pulse Ox 98.4 F 72 20 133/70 99 09/05/21 05:17 09/05/21 05:17 09/05/21 05:17 09/05/21 05:17 09/05/21 10:35 Temperature -Last 24 Hours Temperature 98.4 F Temperature 99.8 F Results - Labs CBC & Chem 7: 09/05/21 05:54 09/05/21 05:54 Labs: Abnormal lab results 09/04/21 09/04/21 09/05/21 Range/Units 23:03 Unknown 05:54 WBC 14.6 H (4.5-11.0) K/mm3 RBC 3.54 L (3.65-5.03) M/mm3 Hgb 10.0 L (11.8-15.2) gm/dl Hct 29.0 L (35.5-45.6) % MCV 82 L (84-94) fl Lymph % (Auto) 8.5 L (13.4-35.0) % [place] % (Auto) 9.7 H (0.0-7.3) % [place] # (Auto) 1.4 H (0.0-0.8) K/mm3 Seg Neutrophils % 81.5 H (40.0-70.0) % Seg Neutrophils # 11.9 H (1.8-7.7) K/mm3 Sodium (137-145) mmol/L Potassium (3.6-5.0) mmol/L Carbon Dioxide (22-30) mmol/L Glucose (75-100) mg/dL POC Glucose 133 H (70-105) mg/dL Prealbumin (0.200-0.400) g/L Ur Specific [place] 1.039 H (1.003-1.030) 09/05/21 09/05/21 Range/Units 05:54 07:17 WBC (4.5-11.0) K/mm3 RBC (3.65-5.03) M/mm3 Hgb (11.8-15.2) gm/dl Hct (35.5-45.6) % MCV (84-94) fl Lymph % (Auto) (13.4-35.0) % [place] % (Auto) (0.0-7.3) % [place] # (Auto) (0.0-0.8) K/mm3 Seg Neutrophils % (40.0-70.0) % Seg Neutrophils # (1.8-7.7) K/mm3 Sodium 133 L (137-145) mmol/L Potassium 3.5 L (3.6-5.0) mmol/L Carbon Dioxide 19 L (22-30) mmol/L Glucose 129 H (75-100) mg/dL POC Glucose 124 H (70-105) mg/dL Prealbumin 0.063 L (0.200-0.400) g/L Ur Specific [place] (1.003-1.030) Assessment and Plan Cultures: 09/04/2021 blood culture: GPC in 1 of 4 bottles A/P: 46-year-old male with IVDU admitted with: #Left foot cellulitis, GPC bacteremia: CT left foot with IV contrast did not reveal any focal abscess. Evaluated by general surgery. Denies injecting bedside directly with drugs. #Leukocytosis, sepsis: Secondary to above #Polysubstance abuse including IVDU: Denies sharing of needles, has not been tested for HIV, hepatitis C. This was recommended to the patient. Counseled against risks of substance abuse Recs: Empiric cefepime, vancomycin Target vancomycin trough between 10 to 15 mcg/mL Follow-up blood culture TTE ordered Continue to monitor left foot dorsum, may evolve into an abscess in which case he will need an I&D Warren Villa MD, FACP, [facility] O: [phone] F: [phone] C: [phone]
--- NOTE | 2021-09-05 15:17 | Progress Note ---
Assessment and Plan Patient is a 46-year-old male currently homeless according to him unfortunately uses IV drugs and also marijuana presents to the ER with complaint of left foot pain swelling fevers and chills in the ER was noted to have a temperature of 10 2.1. He was appropriately diagnosed for severe sepsis secondary to left lower extremity cellulitis. He believes that he fell and may have injured his foot a few days ago he also thinks that he was bitten by something. Here he denies injecting any substance to his leg his choice of drugs heroin which he says he has not had in a few months. He denies any nausea vomiting or diarrhea. He denies any history of diabetes. He does appear severely disheveled and unkept. Left foot 3 views IMPRESSION: Diffuse soft tissue swelling throughout the foot. Calcaneal spurring. S Left leg-4 views IIMPRESSION: There is a tiny L shaped metallic foreign body in the anterolateral aspect of the proximal calf. There is mild circumferential swelling about the essentially the entire catheter extending to the ankle but most prominently in the calf. Normal alignment. Mild tricompartmental DJD in the knee and in the medial ankle mortise. No acute fracture. Moderate enthesopathic change at the calcaneal tuberosity. Severe sepsis, Left foot cellulitis Possible retained foreign body on the left foot IV drug abuse Tobacco use disorder Homeless Metabolic acidosis PLAN Admit to Medsurge unit Sepsis protocol, fluids, cultures, abx ID and Surgical consult Counselling on lifestyle chocies, substance abuse and tobacco use disorder 25mins Counseling on footwear is on ambulation Social work consult Monitor for withdrawal symptoms DVT and GI prophylax Subjective Date of service: 09/05/21 Interval history: Patient seen and examined. Medical records and medication list reviewed. No acute event overnight noted by the RN. Patient denies any chest pain or difficulty breathing. Patient is tolerating diet. Patient has significant left foot swelling and pain Discussed plan of care at bedside with patient. Objective - Constitutional Vitals: Vital Signs - 12hr 09/05/21 09/05/21 09/05/21 05:17 10:35 11:21 Temperature 98.4 F 97.9 F Pulse Rate 72 71 Respiratory 20 20 Rate Blood Pressure 133/70 96/68 O2 Sat by Pulse 97 99 95 Oximetry - Labs CBC & Chem 7: 09/05/21 05:54 09/05/21 05:54 Labs: Abnormal lab results 09/04/21 09/04/21 09/05/21 Range/Units 23:03 Unknown 05:54 WBC 14.6 H (4.5-11.0) K/mm3 RBC 3.54 L (3.65-5.03) M/mm3 Hgb 10.0 L (11.8-15.2) gm/dl Hct 29.0 L (35.5-45.6) % MCV 82 L (84-94) fl Lymph % (Auto) 8.5 L (13.4-35.0) % [place] % (Auto) 9.7 H (0.0-7.3) % [place] # (Auto) 1.4 H (0.0-0.8) K/mm3 Seg Neutrophils % 81.5 H (40.0-70.0) % Seg Neutrophils # 11.9 H (1.8-7.7) K/mm3 Sodium (137-145) mmol/L Potassium (3.6-5.0) mmol/L Carbon Dioxide (22-30) mmol/L Glucose (75-100) mg/dL POC Glucose 133 H (70-105) mg/dL Prealbumin (0.200-0.400) g/L Ur Specific [place] 1.039 H (1.003-1.030) 09/05/21 09/05/21 09/05/21 Range/Units 05:54 07:17 11:21 WBC (4.5-11.0) K/mm3 RBC (3.65-5.03) M/mm3 Hgb (11.8-15.2) gm/dl Hct (35.5-45.6) % MCV (84-94) fl Lymph % (Auto) (13.4-35.0) % [place] % (Auto) (0.0-7.3) % [place] # (Auto) (0.0-0.8) K/mm3 Seg Neutrophils % (40.0-70.0) % Seg Neutrophils # (1.8-7.7) K/mm3 Sodium 133 L (137-145) mmol/L Potassium 3.5 L (3.6-5.0) mmol/L Carbon Dioxide 19 L (22-30) mmol/L Glucose 129 H (75-100) mg/dL POC Glucose 124 H 133 H (70-105) mg/dL Prealbumin 0.063 L (0.200-0.400) g/L Ur Specific [place] (1.003-1.030)
[2021-09-05] MEDS: CEFEPIME/NS 2 GM/100 ML 2 GM/100 ML BAG IV SCH ×2 (16:01→22:03)
--- NOTE | 2021-09-05 17:06 | Progress Note ---
Assessment and Plan 46 yo M with 1. L foot cellulitis 2. sepsis ct LLE - cellulitis, no collection/abscess Plan: 1. Diet as [place] 2. IVF 3. IV abx per ID 4. blcx pending - prelim gram + 5. DVT ppx 6. prn pain control 7. LLE elevation 8. wound care 9. May need I&D if cellulitis evolves into abscess Thank you. Please call with any questions or concerns. Evaluation and treatment of this patient was during the time of the national and state emergency arising from COVID19 coronavirus pandemic. Treatment and procedures performed meet the current and available best practice and guidelines for patient during the COVID pandemic. Subjective Date of service: 09/05/21 Narrative: Pt seen and examined. No acute complaints. Afebrile today. Pain controlled with pain meds. Objective Vital Signs - 12hr 09/05/21 09/05/21 09/05/21 05:17 10:35 11:21 Temperature 98.4 F 97.9 F Pulse Rate 72 71 Respiratory 20 20 Rate Blood Pressure 133/70 96/68 O2 Sat by Pulse 97 99 95 Oximetry - General physical appearance Narrative Exam: Gen.: Awake, alert, oriented x3. No apparent distress ENT: Trachea midline. No lymphadenopathy. No scleral icterus or conjunctival pallor CV: S1, S2 present Respiratory: No audible wheezes Abdomen: Soft, nondistended, nontender. No rebound, rigidity, guarding Extremities: 3+ edema of left foot extending to the lower calf. There is erythema of the dorsal aspect of the foot extending towards the ankle The foot is warm. Calf is soft. Moderate tenderness to palpation of the foot. Superficial wound Dorsal aspect of the foot with blistering of skin and scant serous drainage. - Labs 09/05/21 05:54 09/05/21 05:54 Diabetes panel 09/05/21 Range/Units 05:54 Sodium 133 L (137-145) mmol/L Potassium 3.5 L (3.6-5.0) mmol/L Chloride 99.0 (98-107) mmol/L Carbon Dioxide 19 L (22-30) mmol/L BUN 11 (9-20) mg/dL Creatinine 1.0 (0.8-1.3) mg/dL Glucose 129 H (75-100) mg/dL Calcium 8.4 (8.4-10.2) mg/dL Calcium panel 09/05/21 Range/Units 05:54 Calcium 8.4 (8.4-10.2) mg/dL Pituitary panel 09/05/21 Range/Units 05:54 Sodium 133 L (137-145) mmol/L Potassium 3.5 L (3.6-5.0) mmol/L Chloride 99.0 (98-107) mmol/L Carbon Dioxide 19 L (22-30) mmol/L BUN 11 (9-20) mg/dL Creatinine 1.0 (0.8-1.3) mg/dL Glucose 129 H (75-100) mg/dL Calcium 8.4 (8.4-10.2) mg/dL Adrenal panel 09/05/21 Range/Units 05:54 Sodium 133 L (137-145) mmol/L Potassium 3.5 L (3.6-5.0) mmol/L Chloride 99.0 (98-107) mmol/L Carbon Dioxide 19 L (22-30) mmol/L BUN 11 (9-20) mg/dL Creatinine 1.0 (0.8-1.3) mg/dL Glucose 129 H (75-100) mg/dL Calcium 8.4 (8.4-10.2) mg/dL
[2021-09-06] MEDS: ACETAMINOPHEN 325 MG TAB PO PRN (05:46)
[2021-09-06] MEDS: HEPARIN 5,000 UNIT/1 ML VIAL SUB-Q SCH (05:46)
[2021-09-06] MEDS: SODIUM CHLORIDE 0.9% 1000 ML 1,000 ML IV SCH (05:46)
[2021-09-06 05:55] VITALS: BP 124/74
[2021-09-06] MEDS: CEFEPIME/NS 2 GM/100 ML 2 GM/100 ML BAG IV SCH (10:07)
[2021-09-06] MEDS: FAMOTIDINE 20 MG/2 ML INJ IV SCH (10:08)
[2021-09-06] MEDS: DOCUSATE SODIUM 100 MG CAP PO SCH (10:08)
[2021-09-06] MEDS: VANCOMYCIN 1,250 MG in SODIUM CHLORIDE 0.9% 250ML 250 ML IV SCH (11:00)
--- NOTE | 2021-09-08 13:10 | Discharge Summary ---
Providers - Providers Date of Admission: 09/04/21 08:59 Date of discharge: 09/06/21 Attending physician: AMENA REDDY 09/04/21 08:12 Consult to Physician [CONS] Urgent Comment: Consulting Provider: KWESI FORD Physician Instructions: Reason For Exam: Cellulitis and sepsis, left foot abscess 09/04/21 08:58 Consult to Physician [CONS] Routine Comment: Consulting Provider: HALI RAMIREZ Physician Instructions: Reason For Exam: left foot abscess Primary care physician: RYLEE DOTSON Hospitalization Condition: Fair Disposition: 07 LEFT AGAINST MEDICAL ADVICE Exam - Constitutional Vitals: Temp Pulse Resp BP Pulse Ox 100.6 F H 73 20 124/74 100 09/06/21 04:51 09/06/21 04:51 09/06/21 10:00 09/06/21 04:51 09/06/21 10:00 Plan Follow up with: RYLEE DOTSON MD [Primary Care Provider] - 3-5 Days Prescriptions: Sulfamethoxazole/Trimethoprim [Bactrim DS TAB] 1 each PO BID #14
== END 2021-09-06 11:19 | disposition left against medical advice (07) | DRG 872 ==
LOC: ED 00:32 → 3A 08:59
PROVIDERS: ADMIT Internal Medicine; ATTEND Internal Medicine
DX: A41.9 Sepsis, unspecified organism (principal); L03.116 Cellulitis of left lower limb; L02.612 Cutaneous abscess of left foot; E87.2 Acidosis; R65.20 Severe sepsis without septic shock; F19.10 Other psychoactive substance abuse, uncomplicated; Z53.29 Procedure and treatment not carried out because of patient's decision for other reasons; Z59.00 Homelessness unspecified; Z79.899 Other long term (current) drug therapy
CPT/HCPCS: 36415; 80048; 80053; 80307; 81001; 82140; 82550; 82962; 83036; 84134; 85025; 85610; 85652; 85730; 86140; 86850; 86900; 86901; 87040; 87076; 87086; 87186; 93306; G0378; J3490; Q0162; C8929; J0692; J1170; J1644; J2543; J3370; J7030; J7040; J7050; Q9967